=== PATIENT | male | born 1995 | race African-American/Black ===

== ENCOUNTER 2017-06-07 17:40 | Emergency (ER) | payer BC ==
[2017-06-07 17:56] VITALS: BP 141/88
--- NOTE | 2017-06-07 18:17 | ED ---
Lower Extremity - HPI Summary HPI Summary: C/o left knee pain, states he was admitted for MRSA in the same area, states today he hit it and cut the left knee. 2-2.5cm lac to left knee which occurred about 2 hours prior to arrival, dressing applied. Worried he is going to get another infection. The laceration is less than 2 cm and superficial. The area appears to be an abrasion. Full ROM without pain. He is concerned with the MRSA and would like abx. Denies fevers, sweats or chills. - History of Current Complaint Chief Complaint: EDExtremityLower Stated Complaint: LEFT KNEE PAIN Time Seen by Provider: 06/07/17 18:06 Hx Obtained From: Patient Mechanism Of Injury: Blunt Trauma Onset of Pain: Immediate Onset/Duration: Minutes Severity Initially: Mild Severity Currently: Mild Pain Intensity: 1 Pain Scale Used: 0-10 Numeric Timing: Constant Location: Is Discrete @ - left knee Aggravating Factor(s): Standing, Ambulation Alleviating Factor(s): Rest Able to Bear Weight: No - Risk Factors Gout Risk Factors: Negative DVT Risk Factors: Negative Septic Arthritis Risk Factor: Negative - Allergies/Home Medications Allergies/Adverse Reactions: Allergies Allergy/AdvReac Type Severity Reaction Status Date / Time No Known Allergies Allergy Verified 05/04/17 01:01 EDT PMH/Surg Hx/FS Hx/Imm Hx Previously Healthy: Yes Endocrine/Hematology History: Denies: Hx Diabetes Cardiovascular History: Denies: Hx Hypertension Sensory History: Denies: Hx Contacts or Glasses, Hx Hearing Aid Opthamlomology History: Denies: Hx Contacts or Glasses - Surgical History Surgery Procedure, Year, and Place: [place] teeth extraction. Hx Anesthesia Reactions: No - Immunization History Date of Influenza Vaccine: this year Hx Pertussis Vaccination: No Immunizations Up to Date: Unable to Obtain/Confirm Infectious Disease History: No Infectious Disease History: Denies: Traveled Outside the [place] in Last 30 Days - Family History Known Family History: Negative: Hypertension, Diabetes - Social History Occupation: Unemployed, Student Lives: Dormitory/Roommates Alcohol Use: Occasionally Hx Substance Use: No Substance Use Type: Reports: None Hx Tobacco Use: No Smoking Status (MU): Never Smoked Tobacco Review of Systems Constitutional: Negative Negative: Fever, Chills, Fatigue Eyes: Negative Cardiovascular: Negative Respiratory: Negative Genitourinary: Negative Positive: no symptoms reported, see HPI Musculoskeletal: Negative Positive: Other - small 2cm superifical abrasion to the left knee Neurological: Negative All Other Systems Reviewed And Are Negative: Yes Physical Exam Triage Information Reviewed: Yes Vital Signs On Initial Exam: Initial Vitals Temp Pulse Resp BP Pulse Ox 98.8 F 89 18 141/88 97 06/07/17 17:51 06/07/17 17:51 06/07/17 17:51 06/07/17 17:51 06/07/17 17:51 Vital Signs Reviewed: Yes Appearance: Positive: Well-Appearing, No Pain Distress, Well-Nourished, Signs of Trauma Skin: Positive: Skin Color Reflects Adequate Perfusion Head/Face: Positive: Normal Head/Face Inspection Eyes: Positive: EOMI, FANNY, Conjunctiva Clear Neck: Positive: Supple, No Lymphadenopathy Respiratory/Lung Sounds: Positive: Clear to Auscultation, Breath Sounds Present Cardiovascular: Positive: Normal, RRR, Pulses are Symmetrical in both Upper and Lower Extremities Musculoskeletal: Positive: Normal, Strength/ROM Intact Neurological: Positive: Speech Normal Psychiatric: Positive: Normal, Affect/Mood Appropriate - Adrianna Coma Scale Coma Scale Total: 15 Diagnostics - Vital Signs Vital Signs Temp Pulse Resp BP Pulse Ox 06/07/17 17:51 98.8 F 89 18 141/88 97 - Laboratory Lab Statement: Any lab studies that have been ordered have been reviewed, and results considered in the medical decision making process. Lower Extremity Course/Dx - Course Course Of Treatment: Patient with a history of MRSA in the left knee 3 weeks ago and treated as inpatient x 3 days returns today with abrasion/laceration to the left knee. He is concerned for worsneing infection. small 2cm superifical abrasion to the left knee is noted. Discussed treatment options with patient and unable to close the wound d/t abrasion with avulsion of skin. He is given bactrim to prevent infection d/t recent MRSA history and antibiotic ointment applied and gauze wrapped. Return precautions given. Bactrim prescribed on paper as patient leaving for [facility] and pharmacy closed. Given 1 tab here and 1 to go. - Diagnoses Differential Diagnosis/HQI/PQRI: Positive: Contusion, Infection, Strain Provider Diagnoses: Abrasion of left knee Discharge - Discharge Plan Condition: Stable Disposition: HOME Patient Education Materials: Abrasion (ED) Referrals: [facility] - Petey TAYLOR [Primary Care Provider] - Additional Instructions: Change out the bandage once daily Always place anitbiotic ointment on first Keep it covered for 2-3 days f you develop redness, streaks of red around the wound, swelling, abnormal drainage or you develop a fever - you need to come back to the ED right away. bactrim is prescribed to you - [facility] pick at pharmacy and start first dose tomorrow night. FINISH THE ENTIRE COURSE OF ANTIBIOTICS, EVEN IF YOU BEGIN TO FEEL BETTER! Please take probiotics on the opposite schedule of the antibiotic to prevent secondary infections. Images - Images Full Body (No Head): 1 - small 2cm superifical abrasion to the left knee
[2017-06-07] MEDS ORDERED: Sulfamethox/Trimethoprim DS 800/160* TAB PO ONE ×2 (19:50→19:52)
== END 2017-06-07 20:07 | disposition home or self-care (01) ==
LOC: ED 17:40
DX: S80.212A Abrasion, left knee, initial encounter (principal); W22.8XXA Striking against or struck by other objects, initial encounter; Y93.9 Activity, unspecified; Y92.9 Unspecified place or not applicable; Z86.14 Personal history of Methicillin resistant Staphylococcus aureus infection
CPT/HCPCS: 99282; A9270-GY